=== PATIENT | male | born 1990 | race Caucasian/White ===

== ENCOUNTER 2017-03-09 10:50 | Day surgery (SDC) | payer BC ==
[2017-03-04 11:31] VITALS: BMI 25.7
[2017-03-09] MEDS ORDERED: Dexamethasone 20 MG/5 ML VIAL ONE (11:13)
[2017-03-09] MEDS ORDERED: PROPOFOL 200 MG/20 ML VIAL ONE (11:13)
[2017-03-09] MEDS ORDERED: Glycopyrrolate 0.2 MG/ML 5 ML SYRINGE ONE (11:13)
[2017-03-09] MEDS ORDERED: Lidocaine 1% PF 5 ML VIAL ONE (11:13)
[2017-03-09] MEDS ORDERED: Ondansetron HCl/PF 4 MG/2 ML Vial ONE (11:13)
[2017-03-09] MEDS ORDERED: Ketorolac Tromethamine 30 MG/ML VIAL ONE (11:32)
[2017-03-09] MEDS ORDERED: CEFAZOLIN/Water 2 GM/20 ML SYRINGE ONE (11:32)
[2017-03-09] MEDS ORDERED: Fentanyl 100 MCG/2 ML VIAL ONE (12:43)
[2017-03-09] MEDS ORDERED: Midazolam HCl 2 mg/2 ml Vial ONE (12:43)
[2017-03-09] MEDS ORDERED: Bacitracin Zinc Ointment 30 gm TUBE ONE (12:55)
[2017-03-09] MEDS ORDERED: Bupivacaine/Epinephrine 0.25% 30 ML VIAL ONE (12:55)
--- NOTE | 2017-03-09 21:38 | OP ---
DATE OF OPERATION: 03/09/2017 PREOPERATIVE DIAGNOSIS: Pilonidal disease. POSTOPERATIVE DIAGNOSIS: Pilonidal disease. OPERATION PERFORMED: Pilonidal excision with a layered closure. SURGEON: Philippe Devi MD ANESTHESIA: General endotracheal. INDICATIONS: The patient is a 26-year-old white male. He has obvious pilonidal disease for which he underwent a previous incision and drainage procedure. He had then undergone a wound care until the field appropriately. He presents at this time for definitive pilonidal excision. DESCRIPTION OF PROCEDURE: Informed consent was obtained. The patient was taken to the operating ulises m where general endotracheal anesthesia was obtained with the patient in supine position. He was the n rolled over in the prone jackknife position and the buttocks were taped apart. The surrounding lisette r was trimmed appropriately. He was prepped with Betadine and draped in sterile fashion. Local anes thetic was infiltrated using 0.25% Marcaine with epinephrine. An elliptical incision was created whi ch extended to the right of midline, encompassing the pilonidal pit inferiorly and the area of the pr ior drainage superiorly. Prior to making the incision, the pit was cannulated with an Angiocath and the area was flushed with a mixture of peroxide and methylene blue dye. During the course of the dissection, care was taken to avoid removing any blue-stained tissue. The e lliptical incision was carried deeply down to the sacral fascia. The specimen was passed off the fie ld. Meticulous hemostasis was obtained and the wound was irrigated. The fatty cutaneous flap on the left of midline was elevated off the underlying gluteal muscle. The wound was then closed in layers using interrupted sutures of 2-0 Vicryl to approximate the deep layers and interrupted sutures of 2- 0 nylon to approximate the skin using vertical mattress sutures. The deep sutures were fashion so as to obliterate the space and to mobilize the flap from the patient's left across the midline to the right. The skin edges were then further approximated with a running suture of 4-0 Prolene. Anti biotic ointment and dry gauze dressing were applied. There were no complications. The patient jim ated the procedure well and was taken to recovery room in stable condition.
== END 2017-03-09 16:40 | disposition home or self-care (01) ==
LOC: SDC 10:50
PROVIDERS: ATTEND Specialist
PROC: 0JB90ZZ Excision of Buttock Subcutaneous Tissue and Fascia, Open Approach (ICD-10-PCS; principal; 2017-03-09)
DX: L72.0 Epidermal cyst (principal); J30.2 Other seasonal allergic rhinitis; Z98.818 Other dental procedure status; Z98.890 Other specified postprocedural states
CPT/HCPCS: 88304; J0131; J1100; J1885; J2001; J2250; J2405; J2704; J3010; Q9968